=== PATIENT | male | born 1945 | race Caucasian/White ===

== ENCOUNTER 2022-06-16 10:19 | Outpatient (CLI) | payer SELFPAY ==
--- NOTE | 2022-06-16 10:44 | XR_ITS ---
WS: [id number] Exam: XR chest 2V* [id number] Date/Time of Exam: 06/16/2022 10:45 AM Reason For Exam: R05.3 - Chronic cough Comparison 05/18/2012. There are infiltrates and atelectasis in the right upper and right middle lobes as well as the lingul ar segment of the left upper lobe. Small left basal pleural effusion is noted. Infiltrate in the left lower lobe. Heart size is normal. The mediastinum is normal in contour. Bilateral apical pleural thi ckening. No pneumothorax. Bony structures are intact. XR/XR chest 2V* [id number] IMPRESSION: 1. Infiltrate and atelectasis in the right upper and right middle lobes as well as the lingula and left lower lobe suggesting active pneumonia. Small left bas al pleural effusion. Covid pneumonia might be considered.
== END 2022-06-16 10:20 | disposition home or self-care (01) ==
PROVIDERS: PCP Family Medicine; Visit Provider Family Medicine
DX: R05.3 Chronic cough (principal); J98.11 Atelectasis; J90 Pleural effusion, not elsewhere classified
CPT/HCPCS: 71046

== ENCOUNTER → 2022-08-06 08:27 | Outpatient (BNVA) | payer SELFPAY | PROVIDERS: PCP Family Medicine; Visit Provider Family Medicine | DX: R05.3 Chronic cough (principal); R63.4 Abnormal weight loss | CPT/HCPCS: 71046; 80053; 80061; 81000; 83036; 83735; 84439; 84443; 85025; G0103 ==

== ENCOUNTER 2022-08-06 11:22 | Emergency (ER) | payer SELFPAY ==
--- NOTE | 2022-08-06 11:36 | ECG_ITS ---
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 Measurements Intervals [place] Rate: 83 P: 0 NH: 0 QRS: 66 QRSD: 99 T: -28 QT: 365 QTc: 429 Interpretive Statements ATRIAL FIBRILLATION INCOMPLETE RIGHT BUNDLE BRANCH BLOCK [90+ ms QRS DURATION, TERMINAL R IN V1/V2, 40+ ms S IN I/aVL/V4/V5/V6] NONSPECIFIC T-WAVE ABNORMALITY No previous ECG available for comparison Electronically Signed On 08-07-2022 6:26:08 WEATHERIZATION FIELD TECHNICIAN by Hermes Qureshi M.D. [id number]
--- NOTE | 2022-08-06 11:36 | CT_ITS ---
WS: [id number] CTA CHEST WITH ABDOMEN PELVIS TECHNIQUE: Noncontrast plus contrast enhanced CTA of the chest and abdomen with coronal and sagittal reformatted images and additional MIP Images. CLINICAL INFORMATION: Lg L pleurel effusion, chest/abd pain COMPARISON: None. DLP: 537.[address] scans at [facility] use at least one of these dose optimization techniques: automated e xposure control; mA and/or kV adjustment per patient size (includes targeted exams where dose is matc hed to clinical indication); or iterative reconstruction. FINDINGS: Loculated pleural fluid LEFT lower lobe with pleural enhancement suspicious for empyema. Fluid extend ing along the LEFT fissure. Peripheral pleural fluid extends into the LEFT upper lobe laterally with pleural thickening. Loculated fluid extends along the mediastinum and LEFT heart border. Fibrosis in the lung apices. RIGHT lung is well aerated. A few patchy infiltrates in the superior segment of the RIGHT lower lobe. A few tiny subcentimeter noncalcified nodules. Subsegmental atelectasis in the RIGHT middle lobe. Slightly ectatic ascending thoracic aorta measuring 3.5 CM. Normal descending thoracic aorta. No diss ection. Proximal main pulmonary arteries appear normal. No evidence of pulmonary embolus. Volume loss LEFT lung. Reactive anterior mediastinal lymph nodes. No axillary lymphadenopathy. Normal liver. A few incidental hepatic cysts. Normal portal vein and splenic vein. Splenic granulomas . Small esophageal hiatal hernia. Gallbladder appears normal. Adrenal glands are normal. Normal renal parenchymal enhancement. No hydronephrosis. Small renal cysts. Normal caliber abdominal aorta. Somewhat prominent prostate measuring 4.0 cm. Slight anterolisthesis L3 on L4. Severe central canal s tenosis L3-L4. Moderate to severe central canal stenosis L4-L5. A few small lucencies in the RIGHT ilium adjacent to the SI joints may be benign and due to osteopeni a but technically indeterminant. Similar-appearing but smaller lucencies in the LEFT ilium. CT/CT angio chest w abd pel w con IMPRESSION: 1. No evidence of pulmonary embolus or aortic dissection. 2. Normal caliber abdominal aorta. 3. Loculated LEFT pleural effusion with enhancing pleura extends into the LEFT upper lobe. Findings suspicious for empyema involving the LEFT lower lobe and LEFT upper lobe laterally and mediastinum. Loculated fluid along the LEFT fissu re. 4. Compressive atelectasis LEFT lower lobe. 5. Small amount of patchy infiltrate in the super segment RIGHT lower lobe lik benjamín infectious or inflammatory. 6. No acute findings in the abdomen or pelvis. 7. Severe central canal stenosis L3-L4 and moderate central canal stenosis L4- L5. 8. A few small lucencies in the RIGHT ilium adjacent to the SI joint may be du e to osteopenia but technically indeterminant. No comparisons available. Recom mend bone scan in further evaluation.
[2022-08-06 11:53] VITALS: BMI 17.9
[2022-08-06 11:56] VITALS: BP 143/81; PULSE 85; RESP 18; TEMP 36.7; O2SAT 95
--- NOTE | 2022-08-06 12:09 | PC.PHAR ---
PT STATES HE TAKES NO RX OR OTC MEDICATIONS
--- NOTE | 2022-08-06 12:16 | ED_ITS ---
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 Aguirre's office where he was seen this morning for shortness of breath and cough. Dr. Downs noted that he has an O2 sat in the upper 90s while at rest but with even minimal exertion drops to 84 patient relates that in May he had an episode where he got sick seem to have a pneumonia it resolved spontaneously. He still tries to exercise he used to be an avid runner but has not been able to do much exercise lately because of exertional dyspnea. Chest x-ray done today at Dr. Downs's office showed a loculated pleural effusion. His liver enzymes have been elevated in the past. His creatinine is been normal he has diabetes mellitus his most recent A1c was normal. He had a marked elevation in white count today with 38,000 with a large left shift. MD elicited complaint: shortness of breath, cough and pain with inspiration Context: recent illness Severity: moderate Exacerbating factors: exertion, coughing, inspiration and deep breaths Relieving factors: rest Associated symptoms: Deny abdominal pain, chest pain, fever(s), nausea, orthopnea or vomiting Treatment prior to arrival: none Review of Systems Const: Reports: change in appetite and fatigue; Denies: fever(s), chills, body aches or malaise ENMT: Denies: throat pain, ear or mastoid pain, nasal discharge or nasal congestion Card: Denies: chest pain, edema, dyspnea on exertion or orthopnea Resp: Denies: dyspnea, productive cough or non-productive cough GI: Denies: abdominal pain, nausea, vomiting, hematemesis, coffee ground emesis, diarrhea, constipation, bloating, hematochezia or melena : Denies: flank pain, difficulty urinating, dysuria, urinary frequency or urinary urgency Skin/Breast: Denies: rash or pruritus [facility] PFSH: Medical History (Updated 08/06/22 @ 16:23 by Anthony Mary DO) Diabetes Elev transaminase/LDH Protein calorie malnutrition Unexplained weight loss Surgical History No pertinent past surgical history Social History Smoking and tobacco status: never smoked Alcohol intake: never Physical Exam Const: GENERAL APPEARANCE: cooperative, comfortable, ill appearing and frail appearing NUTRITIONAL APPEARANCE: cachectic ORIENTATION/CONSCIOUSNESS: Yes awake, Yes oriented to person, Yes oriented to place and Yes oriented to time HENMT: COMMON NORMALS: normocephalic, atraumatic and hearing grossly normal bilaterally HEAD & SCALP: normocephalic and atraumatic Resp: COMMON NORMALS: normal respiratory effort, No retractions and No use of accessory muscles AUSCULTATION: breath sounds absent on th left, diminished lung sounds and egophony Cardio: COMMON NORMALS: regular rate, regular rhythm and No murmurs present (Cardio) RATE: regular rate RHYTHM: regular rhythm GI: COMMON NORMALS: Soft to palpation and No hepatosplenomegaly present AUSCULTATION: Yes normoactive bowel sounds PALPATION: Yes Soft to palpation, No Tenderness to palpation present (GI), No Guarding due to palpation present (GI) and Yes No hepatosplenomegaly present Extremity: COMMON NORMALS: normal to inspection, capillary refill normal, no clubbing, cyanosis or edema, no calf tenderness and no pedal edema Neuro: SENSORIUM/ORIENTATION: Yes oriented to person, Yes oriented to place and Yes oriented to time Skin: COMMON NORMALS: no rashes or lesions noted GENERAL SKIN EXAM: no rashes or lesions noted Course Vital Signs: Vital signs: Vital Signs Temperature 98.0 F 08/06/22 11:56 Pulse Rate 85 08/06/22 15:00 Respiratory Rate 14 08/06/22 15:00 Blood Pressure 130/79 08/06/22 15:00 Pulse Oximetry 95 08/06/22 15:00 Oxygen Delivery Me thod 08/06/22 15:00 MDM - SOB/Dyspnea Medical Decision Making Patient started on Vanco Zosyn and Levaquin. Has a loculated pleural effusion that looks like an empyema with a thickened cortex to it. We do not have pulmonology or cardiothoracic surgery available at this time we will transfer patient to Dr. Bird at [facility] in [place] discussed with patient expressed understanding. Labs and imaging will be forwarded. Labs imaging and EKG revie wed here as found in the chart. Medical Records I reviewed the patient's medical records. Lab Data I reviewed the patient's lab results. 08/06/22 12:10 08/06/22 12:10 Labs/Radiology: Radiology Impressions Chest/Abdomen/Pelvis CT 08/06/22 11:36 IMPRESSION: 1. No evidence of pulmonary embolus or aortic dissection. 2. Normal caliber abdominal aorta. 3. Loculated LEFT pleural effusion with enhancing pleura extends into the LEFT upper lobe. Findings suspicious for empyema involving the LEFT lower lobe and LEFT upper lobe laterally and mediastinum. Loculated fluid along the LEFT fissure. 4. Compressive atelectasis LEFT lower lobe. 5. Small amount of patchy infiltrate in the super segment RIGHT lower lobe likely infectious or inflammatory. 6. No acute findings in the abdomen or pelvis. 7. Severe central canal stenosis L3-L4 and moderate central canal stenosis L4- L5. 8. A few small lucencies in the RIGHT ilium adjacent to the SI joint may be due to osteopenia but technically indeterminant. No comparisons available. Recommend bone scan in further evaluation. Laboratory Results WBC 38.0 10^3/uL (4.0-10.0) H* 08/06/22 12:10 RBC 3.49 10^6/uL (4.1-5.3) L 08/06/22 12:10 Hgb 11.1 g/dL (11.7-16.6) L 08/06/22 12:10 Hct 33.3 % (42.0-52.0) L 08/06/22 12:10 MCV 95.4 fl (80-94) H 08/06/22 12:10 MCH 31.8 pg (28.0-34.0) 08/06/22 12:10 MCHC 33.3 g/dL (30.0-36.0) 08/06/22 12:10 RDW 13.6 % (12.1-15.1) 08/06/22 12:10 Plt Count 780 10^3/cmm (130-400) H 08/06/22 12:10 MPV 8.6 fL (7.4-10.4) 08/06/22 12:10 Neut % (Auto) 91.2 % 08/06/22 12:10 Lymph % (Auto) 2.6 % 08/06/22 12:10 Fajardo % (Auto) 2.7 % 08/06/22 12:10 Eos % (Auto) 0.0 % 08/06/22 12:10 Baso % (Auto) 0.3 % 08/06/22 12:10 Neut # (Auto) 34.60 10^3/uL (1.8-7.7) H 08/06/22 12:10 Lymph # (Auto) 1.0 10^3/uL (0.8-4.8) 08/06/22 12:10 Fajardo # (Auto) 1.0 10^3/uL (0.2-0.9) H 08/06/22 12:10 Eos # (Auto) 0.0 10^3/uL (0.0-0.8) 08/06/22 12:10 Baso # (Auto) 0.1 10^3/uL (0.0-0.1) 08/06/22 12:10 Nucleated RBC % (auto) 0 % 08/06/22 12:10 Nucleated RBCs # 0.0 /100WBC 08/06/22 12:10 Sodium 128 mmol/L (136-145) L 08/06/22 12:10 Potassium 4.2 mmol/L (3.5-5.1) 08/06/22 12:10 Chloride 91 mmol/L (98-107) L 08/06/22 12:10 Carbon Dioxide 23 mmol/L (22-29) 08/06/22 12:10 Anion Gap 18.2 (5-19) 08/06/22 12:10 BUN 22 mg/dL (8-23) 08/06/22 12:10 Creatinine 1.0 mg/dL (0.7-1.2) 08/06/22 12:10 GFR Calculation Not Reportable 08/06/22 12:10 Glucose 112 mg/dL (65-115) 08/06/22 12:10 Calculated Osmolality 270 mOsm/kg (285-295) L 08/06/22 12:10 Lactic Acid 1.8 mmol/L (0.5-2.2) 08/06/22 12:10 Calcium 8.7 mg/dL (8.5-10.5) 08/06/22 12:10 Magnesium 2.0 mg/dL (1.7-2.3) 08/06/22 12:10 Total Bilirubin 0.5 mg/dL (0.15-1.2) 08/06/22 12:10 AST 37 U/L (0-40) 08/06/22 12:10 ALT 24 U/L (0-41) 08/06/22 12:10 Alkaline Phosphatase 163 U/L (40-130) H 08/06/22 12:10 Troponin T Baseline 34 ng/L (0-15) H 08/06/22 12:10 Troponin T 120 Minute 23.53 ng/L (0-15) H 08/06/22 14:32 Delta Troponin T -10.47 ABS# (0-10) L 08/06/22 14:32 NT-Pro-B Natriuret Pep 3756 pg/mL (0-450) H 08/06/22 12:10 Total Protein 6.7 g/dL (6.6-8.7) 08/06/22 12:10 Albumin 2.8 g/dL (3.5-5.2) L 08/06/22 12:10 Globulin 3.9 g/dL (1.3-4.6) 08/06/22 12:10 Lipase 60 U/L (13-60) 08/06/22 12:10 Serum Ketones Negative (Negative) 08/06/22 12:10 Discharge Plan Discharge Patient Disposition: Xfer Short-Term Hosp Clinical Impression: Loculated empyema, Unexplained weight loss, Protein calorie malnutrition, Diabetes Condition: Stable Prescriptions: No Action No Known Home Medications Referrals: Jigna Mederos MD [Primary Care Provider] - Coding Level of Care Code ED Web Programmer for Chg Fwd Exam Detailed
[2022-08-06 12:26] LABS: Basophils # 0.1 10^3/uL (0.0-0.1); Basophils % 0.3 %; Hematocrit 33.3 % (42.0-52.0); Hemoglobin 11.1 g/dL (11.7-16.6); Lymphocytes % 2.6 %; Mean Corpuscular HGB Conc 33.3 g/dL (30.0-36.0); Mean Corpuscular Hemoglobin 31.8 pg (28.0-34.0); Mean Corpuscular Volume 95.4 fl (80-94); Mean Platelet Volume 8.6 fL (7.4-10.4); Monocytes % 2.7 %; Neutrophils % 91.2 %; Nucleated Red Blood Cells % 0 %; Platelet Count 780 10^3/cmm (130-400); Red Blood Count 3.49 10^6/uL (4.1-5.3); Red Cell Distribution Width 13.6 % (12.1-15.1)
[2022-08-06 12:36] LABS: Ketone (Acetest) Serum Negative (Negative)
[2022-08-06 12:49] LABS: Lactic Sepsis W/Reflex 1.8 mmol/L (0.5-2.2)
[2022-08-06] MEDS: levofloxacin-dextrose 5 % 750 MG/150 ML PREMIX 100 MG IV (12:50)
[2022-08-06 12:57] LABS: Troponin(5th) Baseline 34 ng/L (0-15)
[2022-08-06 13:05] LABS: Alanine Aminotransferase 24 U/L (0-41); Albumin Level 2.8 g/dL (3.5-5.2); Alkaline Phosphatase 163 U/L (40-130); Anion Gap 18.2 (5-19); Aspartate Amino Transferase 37 U/L (0-40); Blood Urea Nitrogen 22 mg/dL (8-23); Calcium 8.7 mg/dL (8.5-10.5); Carbon Dioxide 23 mmol/L (22-29); Chloride 91 mmol/L (98-107); Globulin 3.9 g/dL (1.3-4.6); Glucose 112 mg/dL (65-115); Lipase 60 U/L (13-60); NT Pro B Type Natriuretic Pept 3756 pg/mL (0-450); Osmolality Calculated 270 mOsm/kg (285-295); Potassium 4.2 mmol/L (3.5-5.1); Sodium 128 mmol/L (136-145); Total Bilirubin 0.5 mg/dL (0.15-1.2); Total Protein 6.7 g/dL (6.6-8.7)
[2022-08-06 13:28] VITALS: BP 125/80; PULSE 123; RESP 14; O2SAT 97
[2022-08-06 14:30] VITALS: BP 112/86; PULSE 98; RESP 14; O2SAT 96
[2022-08-06 15:00] VITALS: BP 130/79; PULSE 85; RESP 14; O2SAT 95
[2022-08-06] MEDS: piperacillin-tazobactam 3.375 GM in sodium chloride 0.9% (plus) 50 ML IV (15:03)
[2022-08-06 15:05] LABS: Troponin 5 2HR 23.53 ng/L (0-15)
[2022-08-06 15:09] LABS: Troponin 5 2HR Delta -10.47 ABS# (0-10)
--- NOTE | 2022-08-06 15:23 | ECG_ITS ---
[facility] Test Date: 2022-08-06 Pat Name: Esteban Cheng Department: Room: Gender: Male Neonatal Nurse: : 1945 Requested By: Anthony Muñoz Order Number: [id number] Patti MD: Hermes Qureshi M.D. Measurements Intervals [place] Rate: 94 P: 0 ND: 0 QRS: 71 QRSD: 105 T: -45 QT: 379 QTc: 475 Interpretive Statements ATRIAL FIBRILLATION INCOMPLETE RIGHT BUNDLE BRANCH BLOCK [90+ ms QRS DURATION, TERMINAL R IN V1/V2, 40+ ms S IN I/aVL/V4/V5/V6] NONSPECIFIC T-WAVE ABNORMALITY Compared to ECG 08/06/2022 11:53:11 No significant changes Electronically Signed On 08-07-2022 6:32:08 POLICY ANALYST by Hermes Qureshi M.D. [id number]
[2022-08-06] MEDS: vancomycin 1,000 MG in sodium chloride 0.9% 250 ML 250 MG IV (15:34)
[2022-08-06 16:30] VITALS: BP 116/70; PULSE 118; RESP 14; O2SAT 95
[2022-08-06 17:25] LABS: Add Urine Microscopic? YES; Bilirubin Urine Neg (Negative); Blood Urine Neg (Negative); Glucose Urine UA Norm (Normal); Ketones Urine Negative (Negative); Leukocyte Esterase Urine Negative (Negative); Nitrate Urine Negative (Negative); Protein Urine 1+ (Negative); Urine Appearance Clear (CLEAR); Urine Color Yellow (Yellow); Urobilinogen Urine 1 mg/dL (Negative); pH Urine 6.5 (5-7)
[2022-08-06 17:26] LABS: Add Urine Culture? No; Hyaline Casts Urine 0-4 /lpf; Squamous Epithelial Cell Urine 0-4 /hpf (0-5); WBC Urine 0-4 /hpf (0-5)
--- NOTE | 2022-08-06 17:36 | ECG_ITS ---
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 Measurements Intervals [place] Rate: 93 P: 0 [place]: 0 QRS: 73 QRSD: 101 T: 5 QT: 396 QTc: 493 Interpretive Statements ATRIAL FIBRILLATION INCOMPLETE RIGHT BUNDLE BRANCH BLOCK [90+ ms QRS DURATION, TERMINAL R IN V1/V2, 40+ ms S IN I/aVL/V4/V5/V6] NONSPECIFIC T-WAVE ABNORMALITY Compared to ECG 08/06/2022 15:23:30 No significant changes Electronically Signed On 08-07-2022 6:31:59 CREDIT COMPLIANCE OFFICER by Hermes Qureshi M.D. [id number]
[2022-08-06 18:15] VITALS: BP 114/74; PULSE 86; RESP 14; O2SAT 95
[2022-08-06 19:32] LABS: Troponin 5 6HR 24.63 ng/L (0-15)
== END 2022-08-06 21:05 | disposition short-term general hospital (02) ==
PROVIDERS: Emergency Provider Family Medicine; PCP Family Medicine
DX: J86.9 Pyothorax without fistula (principal); E46 Unspecified protein-calorie malnutrition; E11.9 Type 2 diabetes mellitus without complications; R63.4 Abnormal weight loss
CPT/HCPCS: 36415; 71275; 74177; 80053; 81001; 82009; 83605; 83690; 83735; 83880; 84484; 85025; 87040; 93005; 96365; 96367; 99285; J1956; J2543; J3370; J7050; Q9967

== ENCOUNTER → 2022-08-26 13:49 | Outpatient (BNVA) | payer SELFPAY | PROVIDERS: PCP Family Medicine; Visit Provider Family Medicine | DX: J15.4 Pneumonia due to other streptococci (principal) | CPT/HCPCS: 80053; 85025 ==

== ENCOUNTER → 2022-09-03 08:25 | Outpatient (BNVA) | payer SELFPAY | PROVIDERS: PCP Family Medicine; Visit Provider Family Medicine | DX: J18.9 Pneumonia, unspecified organism (principal); J90 Pleural effusion, not elsewhere classified | CPT/HCPCS: 71046; 80053; 85025 ==

== ENCOUNTER → 2022-09-30 08:56 | Outpatient (BNVA) | payer SELFPAY | PROVIDERS: PCP Family Medicine; Visit Provider Family Medicine | DX: J18.9 Pneumonia, unspecified organism (principal); J90 Pleural effusion, not elsewhere classified; D64.9 Anemia, unspecified; E46 Unspecified protein-calorie malnutrition | CPT/HCPCS: 85025 ==

== ENCOUNTER → 2022-12-30 09:23 | Outpatient (BNVA) | payer SELFPAY | PROVIDERS: PCP Family Medicine; Visit Provider Family Medicine | DX: D64.9 Anemia, unspecified (principal); R63.4 Abnormal weight loss; J90 Pleural effusion, not elsewhere classified | CPT/HCPCS: 71046; 80053; 85025 ==

== ENCOUNTER 2023-07-15 15:46 | Outpatient (CLI) | payer SELFPAY ==
[2023-08-04 14:38] LABS: Clostridium Difficile PCR DETECTED (NOT DETECTE)
== END 2023-07-15 15:47 | disposition home or self-care (01) ==
PROVIDERS: PCP Family Medicine; Visit Provider Internal Medicine
DX: Z01.89 Encounter for other specified special examinations (principal)
CPT/HCPCS: 87045; 87177; 87209; 87427; 87449; 87493